=== PATIENT | female | born 1995 | race American Indian/Alaskan Native ===

== ENCOUNTER 2019-01-30 18:59 | Emergency (ER) | payer OTHER ==
[2019-01-30 19:48] VITALS: BP 103/69
[2019-01-30] MEDS ORDERED: TYLENOL PO ONE (20:30)
[2019-01-30] MEDS ORDERED: TYLENOL ONE (20:31)
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
== END 2019-01-31 01:15 | disposition left against medical advice (07) ==
LOC: ED 18:59
DX: M25.532 Pain in left wrist (principal); Z53.21 Procedure and treatment not carried out due to patient leaving prior to being seen by health care provider

== ENCOUNTER 2021-06-11 15:21 | Emergency (ER) | payer OTHER ==
[2021-06-11 15:35] VITALS: BP 111/83
--- NOTE | 2021-06-11 16:34 | Emergency Department Report ---
ED ENT HPI - General Chief complaint: Earache Stated complaint: UNABLE TO HEAR LT EAR Time Seen by Provider: 06/11/21 16:16 Source: patient Mode of arrival: Ambulatory Limitations: No Limitations - History of Present Illness Initial comments: 26-year-old female with no significant past medical history presents to the ER today with complaints of left ear pain. Patient states that her ear started hurting 3 days ago. She reports decreased hearing out of that ear. She states that she did use peroxide in the left ear which did seem to improve the pain slightly and after being the peroxide in the ear she did notice slight yellow drainage from the ear. She denies any bleeding from the ear. She denies any injury to the ear. She states that she has been "battling a sinus infection" for the past week. She denies any fever or chills. She reports no additional symptoms at this time. -: Gradual, days(s) (3) - Related Data Previous Rx's Medication Instructions Recorded Last Taken Type Multivitamin with Iron 1 each PO DAILY #30 tablet 04/17/18 Unknown Rx [Multivitamins with Iron] oxyCODONE /ACETAMINOPHEN [Percocet 1 tab PO Q6HR PRN #30 tablet 04/17/18 Unknown Rx 5/325] Amoxicillin/K Clav Tab [Augmentin 1 tab PO Q12HR #14 tab 06/11/21 Unknown Rx 875 mg] Fluticasone [Flonase] 2 spray NS QDAY #1 bottle 06/11/21 Unknown Rx Ibuprofen [Motrin 600 MG tab] 600 mg PO Q8H PRN #30 tablet 06/11/21 Unknown Rx Allergies Allergy/AdvReac Type Severity Reaction Status Date / Time No Known Allergies Allergy Unverified 04/16/18 22:11 ED Dental HPI - General Chief complaint: Earache Stated complaint: UNABLE TO HEAR LT EAR Time Seen by Provider: 06/11/21 16:16 Source: patient Mode of arrival: Ambulatory Limitations: No Limitations - Related Data Previous Rx's Medication Instructions Recorded Last Taken Type Multivitamin with Iron 1 each PO DAILY #30 tablet 04/17/18 Unknown Rx [Multivitamins with Iron] oxyCODONE /ACETAMINOPHEN [Percocet 1 tab PO Q6HR PRN #30 tablet 04/17/18 Unknown Rx 5/325] Amoxicillin/K Clav Tab [Augmentin 1 tab PO Q12HR #14 tab 06/11/21 Unknown Rx 875 mg] Fluticasone [Flonase] 2 spray NS QDAY #1 bottle 06/11/21 Unknown Rx Ibuprofen [Motrin 600 MG tab] 600 mg PO Q8H PRN #30 tablet 06/11/21 Unknown Rx Allergies Allergy/AdvReac Type Severity Reaction Status Date / Time No Known Allergies Allergy Unverified 04/16/18 22:11 ED Review of Systems ROS: Stated complaint: UNABLE TO HEAR LT EAR Other details as noted in HPI Comment: All other systems reviewed and negative Constitutional: denies: chills, fever ENT: ear pain, congestion. denies: dental pain, hearing loss, epistaxis Respiratory: cough. denies: shortness of breath, SOB with exertion, SOB at rest, wheezing Cardiovascular: denies: chest pain, palpitations, dyspnea on exertion, syncope, paroxysmal nocturnal dyspnea Endocrine: no symptoms reported Gastrointestinal: denies: abdominal pain, nausea, vomiting, diarrhea, constipation, hematemesis, melena, hematochezia Genitourinary: denies: urgency, dysuria, discharge Musculoskeletal: denies: joint swelling, arthralgia, myalgia Skin: denies: rash, lesions, change in color, change in hair/nails, pruritus Neurological: denies: headache, weakness, numbness, paresthesias, confusion, abnormal gait, vertigo ED Past Medical Hx - Past Medical History Previous Medical History?: No Hx Hypertension: No Hx Diabetes: No Hx Deep Vein Thrombosis: No Hx Renal Disease: No Hx Sickle Cell Disease: No Hx Seizures: No Hx Asthma: No Hx HIV: No - Social History Smoking Status: Never Smoker - Medications Home Medications: Home Medications Medication Instructions Recorded Confirmed Last Taken Type Multivitamin with Iron 1 each PO DAILY #30 tablet 04/17/18 Unknown Rx [Multivitamins with Iron] oxyCODONE /ACETAMINOPHEN [Percocet 1 tab PO Q6HR PRN #30 tablet 04/17/18 Unknown Rx 5/325] Amoxicillin/K Clav Tab [Augmentin 1 tab PO Q12HR #14 tab 06/11/21 Unknown Rx 875 mg] Fluticasone [Flonase] 2 spray NS QDAY #1 bottle 06/11/21 Unknown Rx Ibuprofen [Motrin 600 MG tab] 600 mg PO Q8H PRN #30 tablet 06/11/21 Unknown Rx ED Physical Exam - General Limitations: No Limitations General appearance: alert, in no apparent distress - Head Head exam: Present: atraumatic, normocephalic, normal inspection - Eye Eye exam: Present: normal appearance, PERRL, EOMI Pupils: Present: normal accommodation - ENT ENT exam: Present: mucous membranes moist - Expanded ENT Exam Expanded Ear exam: Present: other (small amt white exudate left ear canal but no canal swelling, or ttp) TM/Canal exam: Erythema: Right TM, Left TM (moderate right; mild moderate left), Bulging: Right TM, Effusion: Right TM, Left TM (Moderate left; mild right) Mouth exam: Present: normal external inspection. Absent: drooling, trismus, muffled voice Throat exam: Positive: normal inspection - Neck Neck exam: Present: normal inspection, full ROM. Absent: meningismus - Respiratory Respiratory exam: Present: normal lung sounds bilaterally. Absent: respiratory distress, wheezes, rales, rhonchi - Cardiovascular Cardiovascular Exam: Present: regular rate, normal rhythm, normal heart sounds - Neurological Exam Neurological exam: Present: alert, oriented X3, CN II-XII intact, normal gait - Psychiatric Psychiatric exam: Present: normal affect, normal mood - Skin Skin exam: Present: intact ED Course Vital Signs 06/11/21 15:34 Temperature 98.7 F Pulse Rate 99 H Respiratory 18 Rate Blood Pressure 111/83 [Right] O2 Sat by Pulse 97 Oximetry Critical care attestation.: If time is entered above; I have spent that time in minutes in the direct care of this critically ill patient, excluding procedure time. ED Disposition Clinical Impression: Bilateral otitis media with effusion Disposition: 01 HOME / SELF CARE / HOMELESS Is pt being admited?: No Does the pt Need Aspirin: No Condition: Stable Instructions: Otitis Media, Adult Additional Instructions: Take the augmentin as prescribed. Use the flonase and take the motrin as prescribed for pain. I also recommend over the counter sudafed. Follow up closely with PCP. Return to ED if symptoms worsens or changes in anyway. Prescriptions: Amoxicillin/K Clav Tab [Augmentin 875 mg] 1 tab PO Q12HR #14 tab Fluticasone [Flonase] 2 spray NS QDAY #1 bottle Ibuprofen [Motrin 600 MG tab] 600 mg PO Q8H PRN #30 tablet PRN Reason: Pain Referrals: GLADYS IQBAL MD [Staff Physician] - 3-5 Days [facility] [Provider Group] - 3-5 Days Forms: Work/School Release Form(ED) Time of Disposition: 16:37
== END 2021-06-11 16:45 | disposition home or self-care (01) ==
LOC: ED 15:21
DX: H65.93 Unspecified nonsuppurative otitis media, bilateral (principal)
CPT/HCPCS: 99281